=== PATIENT | female | born 1990 | race Caucasian/White ===

== ENCOUNTER 2017-06-07 06:00 | Inpatient (IN) ==
[2017-06-08] MEDS ORDERED: Naloxone 0.4 MG/ML INJ IVP PRN (06:32)
[2017-06-08] MEDS ORDERED: Famotidine 20 MG/2 ML VIAL IVP PRN (06:32)
[2017-06-08] MEDS ORDERED: Metoclopramide 10 MG/2 ML VIAL IVP PRN (06:32)
[2017-06-08] MEDS ORDERED: miSOPROStol 25 MCG TABLET PO PRN (06:38)
[2017-06-08] MEDS ORDERED: Ringers Solution, Lactated 1,000 ML IVC SCH (06:45)
[2017-06-08 07:54] LABS: Basophils % 0.2 %; Eosinophils # 0.3 K/mcL (0.0-0.6); Eosinophils % 2.9 %; Hematocrit 30.3 % (35.3-44.9); Hemoglobin 9.8 g/dL (11.5-15.4); Immature Granulocytes % 0.5 % (0-4); Lymphocytes # 1.9 K/mcL (0.6-4.6); Lymphocytes % 19.4 %; Mean Corpuscular HGB Conc 32.3 g/dL (31.6-35.5); Mean Corpuscular Hemoglobin 26.6 pg (28.0-33.3); Mean Corpuscular Volume 82.1 fL (83.0-100.0); Mean Platelet Volume 10.2 fL (9.4-12.4); Monocytes # 0.9 K/mcL (0.0-1.3); Neutrophils # 6.7 K/mcL (1.6-8.9); Platelet Count 252 K/mcL (140-400); Red Blood Count 3.69 M/mcL (3.82-4.97); Red Cell Distribution Width 13.4 % (11.5-14.5)
[2017-06-08 08:02] LABS: Amphetamine Screen,Urine Negative ng/mL (Cutoff=1000); Barbiturate Screen,Urine Negative ng/mL (Cutoff=200); Benzodiazepines Screen,Urine Negative ng/mL (Cutoff=200); Cannabinoid Screen,Urine Negative ng/mL (Cutoff = 50); Cocaine Screen,Urine Negative ng/mL (Cutoff= 300); Opiate Screen,Urine Negative ng/mL (Cutoff=300); Phencyclidine Screen,Urine Negative ng/mL (Cutoff=25)
--- NOTE | 2017-06-08 09:44 | Anesthesia Evaluation PreOp ---
Date of Encounter: 06/08/17 Time of Encounter: 09:42 - Past History Planned Operation: JAYDE Cardiac History: Denies any Significant Hx Pulmonary History: Asthma (with , uses inhaler) RESIDENCE MANAGER History: Denies Any Significant HX Other Medical History: Other (hx suboxone abuse 2 yrs ago, iron deficiency anemia) Anesthesia History: No Prior Anesthetic Complications : Yes Alcohol Use: none Drug use: none Medications and Allergies Complete Caplet 1 tab PO DAILY 12/25/15 [History] Ferrous Sulfate 325 mg PO DAILY #30 tablet 12/28/15 [Rx] Allergies Penicillins Allergy (Verified 09/06/15 13:29) Hives acetaminophen [From Tylenol] Adverse Reaction (Verified 06/08/17 08:19) Rash Anesthesia Results - Labs 06/08/17 07:30 Anesthesia Exam BP 115/66 P 93 T 97.9 Height: 5'0 Weight: 69.5kg NPO (# of Hours): 3 Pain Scale: 0 Pain Scale Used: Numeric (1 - 10) - HEENT Pupil (Motor): Pupils equal Mallampati: II Teeth: Normal Oral Opening: Greater than 3 - RESIDENCE MANAGER LOC: Oriented RESIDENCE MANAGER Motor: Normal RUE, Normal LUE, Normal RLE, Normal LLE, Normal Face RESIDENCE MANAGER Sensory: Normal: RUE, LUE, RLE, LLE, Face - Cardiac Rhythm: Regular Murmur: None JVD: No Carotid Bruit: No - Pulmonary Breath Sounds: bilateral Clear Respiratory Effort: Symmetrical Anesthesia Assess/Plan ASA Score: 2 Modified Cadence Scale for Level of Consciousness: Cooperative, oriented, and tranquil Anesthetic Plan: Regional Autologous Blood: No Monitoring Plan: Standard Monitors Recovery Plan: Other
--- NOTE | 2017-06-08 10:26 | OB/GYN History & Physical ---
Date of Encounter: 06/08/17 Time of Encounter: 10:25 Assessment and Plan (1) 39 weeks gestation of Current visit: Yes Status: Acute Admit for elective IOL Cytotec induction Patient may have epidural and/or iv pain medication upon request GBS negative Anticipate vaginal delivery POC per consult with Dr Angel (2) History of substance abuse Current visit: Yes Status: Resolved Hx substanc abuse, not in current During clinic visits with Dr. Angel, pt informed of pediatric observation for 3 days (3) Anemia Current visit: Yes Status: Acute Monitor H&H Continue current iron supplementation. Qualifiers: Anemia type: unspecified type Qualified Code(s): D64.9 - Anemia, unspecified History of Present Illness Chief complaint: Induction of Labor HPI: Ms. Lara is a 26 year old female, , 39.6 GA, presenting to L&D for induction of labor. Patient reports good movement, no loss of fluid, intermittent contractions. Has prior history of narcotics addiction/suboxone use ; however, not during this . No other risk factors identified during this . Labs: Negative for syphilis, HIV, HepB, C.trac, N.cody Immune: Rubella, VZV Bld Type: B- Past Med Surg Social Fam HX - Past Medical History Medical history: kidney stones Psychiatric history: anxiety, depression - Past Surgical History Surgical History: no surgical history - Social History Smoking Status: Never smoker Smokeless Tobacco Status: No Alcohol use: none Drug use: none - Family History Mother Living Status: Still Living Hx Family Cardiac Disorders: No Hx Family Respiratory Disorders: No Hx Family Cancer: No Hx Family GI Disorders: No Hx Family Genitourinary Disorders: No Hx Family Endocrine Disorder: No Hx Family Musculoskeletal Disorders: No Hx Family Neuromuscular Disorders: No Hx Family Neurologic Disorders: No Hx Family HEENT Disorders: No Hx Family Autoimmune Disorders: No Hx Family Reproductive Disorders: No Hx Family Psychosocial Disorders: No Hx Family Medical Disorders: Yes (kidney stones) Obstetrical History - Pregnancies : 2 Medications and Allergies Complete Caplet 1 tab PO DAILY 12/25/15 [History] Ferrous Sulfate 325 mg PO DAILY #30 tablet 12/28/15 [Rx] Allergies Penicillins Allergy (Verified 09/06/15 13:29) Hives acetaminophen [From Tylenol] Adverse Reaction (Verified 06/08/17 08:19) Rash Review of System OB - Constitutional Constitutional ROS IM: no chills, no fatigue, no fever(s) - Respiratory Respiratory: no cough, no dyspnea - Gastrointestinal Gastrointestinal: no abdominal pain - Menstruation Menstruation: other (39.6 GA) - Neurological Nerological: no numbness, no paresthesias, no syncope Exam - Constitutional Constitutional: well developed, well nourished, no acute distress - Neck Neck exam: full ROM - Lungs Respiratory exam: CTAB - Cardiovascular Cardiovascular exam: +S1, +S2 - Abdomen Abdomen: Present: bowel sounds normal - Uterus Uterus exam: Present: enlarged Results Result Diagrams: 06/08/17 07:30 Abnormal lab results RBC 3.69 M/mcL (3.82-4.97) L 06/08/17 07:30 Hgb 9.8 g/dL (11.5-15.4) L 06/08/17 07:30 Hct 30.3 % (35.3-44.9) L 06/08/17 07:30 MCV 82.1 fL (83.0-100.0) L 06/08/17 07:30 MCH 26.6 pg (28.0-33.3) L 06/08/17 07:30 All other labs normal. - VTE Reasons for not Prescribing Prophylaxis: Treatment not Indicated - Low risk for VTE - Attending Attestation I examined this patient and my medical decision-making was reviewed with the Resident Physician. I agree with the documented findings, disposition and treatment plan as described. Ulysses Saenz CNM
[2017-06-08] MEDS ORDERED: *HR* FentaNYL (PF) 100 MCG/2 ML VIAL ONE (13:26)
[2017-06-08] MEDS ORDERED: Bupivacaine-MPF 0.25% 10 ML VIAL ONE (13:27)
[2017-06-08] MEDS ORDERED: Epidural Premix (fent/bupiv) 110 ML EP ONE (13:27)
--- NOTE | 2017-06-08 15:14 | Anesthesia Procedures ---
Date of Encounter: 06/08/17 Time of Encounter: 14:23 Procedures: Anesthesia - Epidural/Spinal Patient ID/Chart reviewed: Yes Patient examined: Yes OB Eval: Gestational age: 39.6 OB Eval: : 2 OB Eval: Hx Para: 1 OB Eval: Dilated at (cm): 4 OB Eval: Contractions: Non-stressed pattern Consent Obtained: Yes Supplemental Oxygen: None/Room Air Site Prep: Aseptic Technique, Sterile prep and drape, Povidone-Iodine 1% Patient position: upright Local Anesthetic: Lidocaine 1% Amount of Local Anesthetic used: 3 Touhy Needle Gauge: 18 Touhy Needle Depth (cm): 6 Catheter Depth at Skin (cm): 13 Test Dose (1.5% Lido + Epi): Volume given (mls): 3 Test Dose Result: Negative Loading Dose: 0.25% Marcaine (mls): 10 Loading Dose: Fentanyl (mcg): 100 Loading Dose Administered: Thru Catheter Infusion Med: 0.125% Bupivacaine w/ 2 mcg/ml Fentanyl Infusion Rate (mls/hr): [address]: Tegaderm, Tape Interspace Used: L4-L5 Loss of Resistance (RICK): Yes Blood: No CSF: No Paresthesia: No Procedure: JAYDE placed in upright position 1st pass without any immediate noted complications. vss throughout Vitals + FHT's: 1428 BP 128/71 P 120 1507 101/67 P 86 FHTs 130s
--- NOTE | 2017-06-08 15:35 | OB Labor Progress Note ---
Date of Encounter: 06/08/17 Time of Encounter: 15:32 Labor Progress Note - Subjective Subjective: Patient resting comfortably in bed with epidural in place. - Vital Signs Vital Signs: VSS - Cervix Cervix: 4-5/80/-2 mid position soft - Heart Tones Heart Tones: 130 with moderate variability and 15 x 15 accels without decels. Category I tracing - Center Line Center Line: Contractions every 2-4 minutes lasting 60 seconds in length palpate moderate uterus palpates soft between contractions. - Interventions Interventions: AROM for moderate amount of clear fluid - Plan Plan: Continue routine labor management GBS negative Consider pitocin if needed for adequate contraction pattern Anticipate vaginal delivery POC per consult with Dr Angel
[2017-06-08] MEDS ORDERED: Ondansetron 4 MG/2 ML VIAL IVP PRN (18:55)
--- NOTE | 2017-06-08 18:56 | OB Labor Progress Note ---
Date of Encounter: 06/08/17 Time of Encounter: 18:54 Labor Progress Note - Subjective Subjective: Doing well, comfortable with epidural - Cervix Cervix: 8-9/100/-1 - Heart Tones Heart Tones: RNST - [place]: uc's -2 - Plan Plan: Expect
[2017-06-08] MEDS ORDERED: Oxytocin 20 units/ LR 1000 mL 20 UNIT/1,000 ML BAG IVC ONE ×2 (19:59→22:16)
--- NOTE | 2017-06-08 20:28 | OB/GYN Procedure Note ---
Delivery - Delivery Date: 06/08/17 Provider: Gab Angel Intrapartum events: none Delivery induction: misoprostol Delivery monitor: external FHT, external uterine Anesthesia: epidural Estimated Blood Loss: 200 - (s) Infant A Infant Delivery Date: 06/08/17 Infant Delivery Time: 20:07 Presentation: vertex Position: NADIA Route of delivery: Gender: Male Viability: Viable Pounds: 6 Ounces: 9 at 1 minute: 8 at 5 mins: 8 Specimens collected: cord blood Placenta: spontaneous Cord: 3 umbilical vessels - Repair Episiotomy: none Laceration Description: None - Complications Delivery complications: none - Disposition Mom disposition: stable in LDR Felch disposition: stable in LDR (Pt s/p without complications. No complications. Spontaneous delivery of normal placenta. No laceration. EBL 200 cc)
[2017-06-08] MEDS ORDERED: Rho Immune Globulin 1,500 UNIT SYRINGE IM PRN (23:10)
[2017-06-08] MEDS ORDERED: Oxytocin 20 units/ LR 1000 mL 20 UNIT/1,000 ML BAG IVC SCH (23:10)
[2017-06-08] MEDS ORDERED: Acetaminophen 325 MG TABLET PO PRN (23:10)
[2017-06-08] MEDS ORDERED: Measles/Mumps/Rubella Vacc 0.5 ML VIAL SQ PRN (23:10)
[2017-06-09 06:29] LABS: Basophils % 0.2 %; Eosinophils # 0.1 K/mcL (0.0-0.6); Eosinophils % 0.8 %; Hematocrit 27.1 % (35.3-44.9); Hemoglobin 8.5 g/dL (11.5-15.4); Immature Granulocytes % 0.3 % (0-4); Lymphocytes # 1.6 K/mcL (0.6-4.6); Lymphocytes % 13.3 %; Mean Corpuscular HGB Conc 31.4 g/dL (31.6-35.5); Mean Corpuscular Hemoglobin 25.8 pg (28.0-33.3); Mean Corpuscular Volume 82.4 fL (83.0-100.0); Mean Platelet Volume 10.5 fL (9.4-12.4); Monocytes # 1.2 K/mcL (0.0-1.3); Monocytes % 10.6 %; Neutrophils # 8.7 K/mcL (1.6-8.9); Platelet Count 216 K/mcL (140-400); Red Blood Count 3.29 M/mcL (3.82-4.97); Red Cell Distribution Width 13.3 % (11.5-14.5); Segmented Neutrophils % 74.8 %
--- NOTE | 2017-06-09 08:52 | Discharge Summary ---
Date of Encounter: 06/09/17 Time of Encounter: 08:50 - Discharge Diagnosis (1) 40 weeks gestation of Priority: Secondary Status: Resolved (2) Vaginal delivery Priority: Primary Status: Acute - Discharge Medications Home Medications: Complete Caplet 1 tab PO DAILY 12/25/15 [History] Ferrous Sulfate 325 mg PO DAILY #30 tablet 12/28/15 [Rx] Allergies/Adverse Reactions: Allergies Penicillins Allergy (Verified 09/06/15 13:29) Hives acetaminophen [From Tylenol] Adverse Reaction (Verified 06/08/17 08:19) Rash Data Procedures and tests throughout hospitalization: Laboratory Tests 06/08/17 06/08/17 06/09/17 07:30 07:30 05:58 WBC 9.9 11.7 H RBC 3.69 L 3.29 L Hgb 9.8 L 8.5 L Hct 30.3 L 27.1 L MCV 82.1 L 82.4 L MCH 26.6 L 25.8 L MCHC 32.3 31.4 L RDW 13.4 13.3 Plt Count 252 216 MPV 10.2 10.5 Immature Gran % 0.5 0.3 Seg Neutrophils % 68.0 74.8 Lymphocytes % 19.4 13.3 Monocytes % 9.0 10.6 Eosinophils % 2.9 0.8 Basophils % 0.2 0.2 Neutrophils # 6.7 8.7 Lymphocytes # 1.9 1.6 Monocytes # 0.9 1.2 Eosinophils # 0.3 0.1 Basophils # 0.0 0.0 Urine Opiates Screen Negative Ur Barbiturates Screen Negative Ur Phencyclidine Scrn Negative Ur Amphetamines Screen Negative U Benzodiazepines Scrn Negative Urine Cocaine Screen Negative U Marijuana (THC) Screen Negative Labs on day of discharge: Labs from last 24 hours 06/09/17 05:58 WBC 11.7 H RBC 3.29 L Hgb 8.5 L Hct 27.1 L MCV 82.4 L MCH 25.8 L MCHC 31.4 L RDW 13.3 Plt Count 216 MPV 10.5 Immature Gran % 0.3 Seg Neutrophils % 74.8 Lymphocytes % 13.3 Monocytes % 10.6 Eosinophils % 0.8 Basophils % 0.2 Neutrophils # 8.7 Lymphocytes # 1.6 Monocytes # 1.2 Eosinophils # 0.1 Basophils # 0.0 Date of admission: 06/08/17 06:22 Primary care physician: PCP NONE Consults: 06/08/17 23:10 Consult to Railway Switchman [CONS] Routine Comment: Vaginal delivery, consult needed Discharging clinician: Jo Claros Anticipated date of discharge: 06/09/17 - Patient Status Disposition: Home, Self-Care Condition: Good Functional capacity at discharge: independent ambulation Overall status at discharge: patient is progressing back to baseline - Discharge Instructions Follow Up With: NONE,PCP [Primary Care Provider] - - Diet and Activity Activity: resume usual activities as tolerated Diet: advance to your usual diet Hospital Course Reason for admission: induction of labor Delivery: Episiotomy: none Laceration: none Other procedures: none complications: none Discharge diagnosis: IUP at term delivered [place] baby: male Time Attestation: Total time spent providing and/or coordinating discharge services: Time Spent: Less than 30 minutes Exam - Constitutional Vitals: Temp Pulse Resp BP Pulse Ox 97.9 F 91 16 111/73 98 06/09/17 01:45 06/09/17 01:45 06/09/17 01:45 06/09/17 01:45 06/09/17 01:45 General appearance IM: A&O X 3, no acute distress - Respiratory Respiratory exam: Present: CTAB. Absent: respiratory distress - Cardiovascular Cardiovascular exam IM: Present: RRR. Absent: irregular rhythm - GI/Abdominal GI/Abdominal exam IM: normal bowel sounds - Uterine Tone: Firm Uterus Position: At Umbilicus - Extremities Exam Extremities exam IM: Absent: calf tenderness - Neurological Exam Neurological exam: oriented X3
[2017-06-09] MEDS ORDERED: Prenatal Vit/FA 1 EACH TABLET PO SCH (09:00)
[2017-06-09 17:20] VITALS: BP 112/73
== END 2017-06-09 12:30 | disposition home or self-care (01) | DRG 560 ==
LOC: 1NENULAB 06-08 06:22 → 1NENUOBS 06-08 23:10
PROVIDERS: ADMIT Obstetrics & Gynecology; ATTEND Obstetrics & Gynecology

== ENCOUNTER 2021-06-19 12:12 | Inpatient (IN) ==
[2021-06-19] MEDS ORDERED: Famotidine 20 MG/2 ML VIAL IVP PRN (12:34)
[2021-06-19] MEDS ORDERED: Metoclopramide 10 MG/2 ML VIAL IVP PRN (12:34)
[2021-06-19] MEDS ORDERED: Lidocaine 1% 20 ML MDV INFILT PRN (12:34)
[2021-06-19] MEDS ORDERED: Naloxone 0.4 MG/ML INJ IVP PRN (12:34)
[2021-06-19] MEDS ORDERED: Ondansetron 4 MG/2 ML VIAL IVP PRN (12:34)
[2021-06-19] MEDS ORDERED: *HR* Nalbuphine 10 MG/ML AMPUL IV PRN (12:34)
[2021-06-19 13:10] LABS: Basophils % 0.2 %; Eosinophils # 0.1 K/mcL (0.0-0.6); Eosinophils % 1.6 %; Hematocrit 31.7 % (35.3-44.9); Immature Granulocytes % 0.3 % (0-4); Lymphocytes # 1.8 K/mcL (0.6-4.6); Lymphocytes % 20.9 %; Mean Corpuscular HGB Conc 31.5 g/dL (31.6-35.5); Mean Corpuscular Hemoglobin 27.7 pg (28.0-33.3); Mean Corpuscular Volume 87.8 fL (83.0-100.0); Mean Platelet Volume 10.5 fL (9.4-12.4); Monocytes # 0.7 K/mcL (0.0-1.3); Monocytes % 7.5 %; Platelet Count 216 K/mcL (140-400); Red Blood Count 3.61 M/mcL (3.82-4.97); Red Cell Distribution Width 13.2 % (11.5-14.5); Segmented Neutrophils % 69.5 %; White Blood Count 8.6 K/mcL (4.3-11.1)
[2021-06-19] MEDS ORDERED: miSOPROStoL 25 MCG TABLET PO PRN (13:13)
[2021-06-19] MEDS ORDERED: *HR* FentaNYL (PF) 100 MCG/2 ML VIAL EP ONE (13:29)
[2021-06-19] MEDS ORDERED: Ropivacaine/PF 0.2% 20 ML VIAL EP ONE (13:29)
[2021-06-19] MEDS ORDERED: EPHEDrine 50 MG/ML VIAL IVP PRN (13:29)
[2021-06-19] MEDS ORDERED: Epidural Premix (fent/bupiv) 110 ML EP SCH (13:30)
[2021-06-19] MEDS ORDERED: *HR* FentaNYL (PF) 250 MCG/5 ML VIAL ONE (13:32)
[2021-06-19] MEDS ORDERED: Ropivacaine/PF 0.2% 20 ML VIAL ONE (13:33)
[2021-06-19 13:40] LABS: Influenza A PCR Negative (Negative); Influenza B PCR Negative (Negative); Resp. Syncytial Virus PCR Negative (Negative); SARS-CoV-2 by PCR (In House) Negative (Negative)
[2021-06-19 13:57] LABS: Amphetamine Screen,Urine Negative ng/mL (Cutoff=1000); Barbiturate Screen,Urine Negative ng/mL (Cutoff=200); Benzodiazepines Screen,Urine Negative ng/mL (Cutoff=200); Cannabinoid Screen,Urine Negative ng/mL (Cutoff = 50); Cocaine Screen,Urine Negative ng/mL (Cutoff= 300); Opiate Screen,Urine Negative ng/mL (Cutoff=300); Phencyclidine Screen,Urine Negative ng/mL (Cutoff=25)
[2021-06-19] MEDS: Ringers Solution, Lactated 1,000 ML IVC SCH ×2 (14:00→17:35)
[2021-06-19] MEDS ORDERED: Oxytocin 20 units/ LR 1000 mL 20 UNIT/1,000 ML BAG IVC SCH ×2 (18:30→21:06)
[2021-06-19] MEDS ORDERED: Benzocaine/Menthol 56 GM AEROSOL SPRAY TP PRN (21:06)
[2021-06-19] MEDS ORDERED: Rho Immune Globulin 1,500 UNIT SYRINGE IM PRN (21:06)
[2021-06-19] MEDS ORDERED: Ibuprofen 600 MG TABLET PO PRN (21:06)
[2021-06-19] MEDS ORDERED: Lanolin 7 G OINT...G. TP PRN (21:06)
[2021-06-19 23:13] VITALS: O2SAT 99
[2021-06-20] MEDS ORDERED: Prenatal Vit/FA 1 EACH TABLET PO SCH (09:00)
[2021-06-20 15:11] VITALS: BP 107/78; PULSE 65; TEMP 97.9
== END 2021-06-20 20:40 | disposition home or self-care (01) | DRG 560 ==
LOC: 1NENULAB 12:12 → 1NENUOBS 22:46
PROVIDERS: ADMIT Obstetrics & Gynecology; ATTEND Obstetrics & Gynecology